=== PATIENT | male | born 1995 | race Caucasian/White ===

== ENCOUNTER 2018-05-31 13:43 | Inpatient (IN) | payer OTHER ==
[2018-05-31] MEDS ORDERED: HEMOQUE TEST 1 EACH EACH ONE ×4 (13:52→19:00)
[2018-05-31] MEDS ORDERED: SODIUM CHLORIDE 1,000 ML IV STA ×2 (13:56→14:14)
--- NOTE | 2018-05-31 13:56 | PDOC ---
History of Present Illness - General Stated Complaint: VOMITING Time Seen by Provider: 05/31/18 13:46 History Source: Patient Exam Limitations: No Limitations - History of Present Illness Initial Comments: 05/31/18 14:02 22-year-old male with past medical history of type one diabetes presents for nausea and vomiting. He states that he ran out of his insulin two days ago, because of insurance issues. He admits to nausea, vomiting, epigastric pain. He denies chest pain, shortness of breath, diarrhea, fever, chills, cough, palpitations, weakness, headache. He states he has never been in DKA, recently moved to the area for college. Past History - Past Medical History Allergies/Adverse Reactions: Allergies Allergy/AdvReac Type Severity Reaction Status Date / Time Penicillins Allergy Unknown Verified 05/31/18 13:59 Home Medications: Ambulatory Orders Insulin Lispro [Admelog] 1 unit SQ ASDIR 05/31/18 Review of Systems - Review of Systems Able to Perform ROS?: Yes Comments:: 05/31/18 14:02 General: denies fever, chills, night sweats, generalized weakness. HEENT: denies sore throat, rhinorrhea, ear pain. Heart: denies chest pain, palpitations, syncope, lower extremity swelling, diaphoresis. Respiratory: denies shortness of breath, cough, sputum production, hemoptysis. Abdomen: admits to abdominal pain, nausea, vomiting. denies diarrhea, constipation, blood in stool. : denies dysuria, increased urinary frequency, hematuria, urinary incontinence , flank pain. Back: denies back pain. Musculoskeletal: denies joint pain, muscle pain, joint swelling. Neurological: denies headache, dizziness, numbness, tingling, weakness. Skin: denies rash, laceration, abrasion. *Physical Exam - Physical Exam Comments: 05/31/18 14:03 Constitutional: Well-nourished, Well-developed, appearing stated age. actively vomiting. HEENT: head is normocephalic, atraumatic. EOMI. PERRLA. Neck: supple. Full ROM. Heart: regular rhythm. no murmurs, rubs or gallops. Lungs: clear to auscultation bilaterally. no crackles, rhonchi or wheezing. no stridor. Abdomen: soft, nontender. normal bowel sounds. no rebound, guarding, masses. Extremities: Peripheral pulses intact. No lower extremity edema. Neurological: CN 2-12 grossly intact. Moves all four extremities. Psych: awake, alert, oriented x3. Follows commands. Answers questions appropriately. ED Treatment Course - LABORATORY CBC & Chemistry Diagram: 06/01/18 08:00 06/01/18 08:00 Medical Decision Making - Medical Decision Making 05/31/18 14:04 22 year old male with PMH type 1 diabetes presented to ED for N/V, admits to no insulin use for 2 days. Initial Vital Signs Temp Pulse Resp BP Pulse Ox 97.9 F 133 H 20 119/71 100 05/31/18 13:45 05/31/18 13:45 05/31/18 13:45 05/31/18 13:45 05/31/18 13:45 Afebrile. Tachycardic. Borderline tachypnea. No hypotension. No hypoxia on room air. Concern for DKA - Pending labs. Concern for infection - Pending CXR, UA/UC, BC Pt actively vomiting - Zofran ordered Fluids ordered. EKG performed at 1409 - rate 129. regular rhythm. normal axis. normal intervals. no acute ST changes. 05/31/18 14:29 CBC WBC 19.7 K/mm3 (4.0-10.8) H 05/31/18 14:14 RBC 5.30 M/mm3 (4.00-5.60) 05/31/18 14:14 Hgb 15.9 GM/dl (11.7-16.9) 05/31/18 14:14 Hct 48.9 % (35.4-49) 05/31/18 14:14 MCV 92.3 fl (80-96) 05/31/18 14:14 MCH 29.9 pg (25.7-33.7) 05/31/18 14:14 MCHC 32.4 g/dl (32.0-35.9) 05/31/18 14:14 RDW 12.0 % (11.9-15.9) 05/31/18 14:14 Plt Count 364 K/MM3 (134-434) 05/31/18 14:14 MPV 9.6 fl (7.5-11.1) 05/31/18 14:14 Absolute Neuts (auto) 17.8 K/mm3 05/31/18 14:14 Neutrophils % No Result Required. 05/31/18 14:14 Lymphocytes % No Result Required. 05/31/18 14:14 Leukocytosis. - Possibly secondary to DKA. Acetone 2+ - Secondary to DKA. Pt reassessed, reports vomiting resolved with Zofran. 05/31/18 14:38 CMP Sodium 128 mmol/L (136-145) L 05/31/18 14:14 Potassium 5.7 mmol/L (3.5-5.1) H 05/31/18 14:14 Chloride 98 mmol/L (98-107) 05/31/18 14:14 Carbon Dioxide 11 mmol/L (22-28) L 05/31/18 14:14 Anion Gap 19 MMOL/L (8-16) H 05/31/18 14:14 BUN 28 mg/dl (7-18) H 05/31/18 14:14 Creatinine 1.4 mg/dl (0.6-1.3) H 05/31/18 14:14 Creat Clearance w eGFR > 60 (>60) 05/31/18 14:14 Random Glucose 505 mg/dl (74-106) H* 05/31/18 14:14 Calcium 9.2 mg/dl (8.4-10.2) 05/31/18 14:14 Phosphorus 7.0 mg/dl (2.5-4.6) H 05/31/18 14:14 Magnesium 2.0 mg/dL (1.8-2.4) 05/31/18 14:14 Total Bilirubin 2.0 mg/dl (0.2-1.0) H 05/31/18 14:14 AST 22 U/L (10-42) 05/31/18 14:14 ALT 22 U/L (10-40) 05/31/18 14:14 Alkaline Phosphatase 121 U/L (32-92) H 05/31/18 14:14 Total Protein 8.4 g/dl (6.4-8.3) H 05/31/18 14:14 Albumin 4.9 g/dl (3.5-5.0) 05/31/18 14:14 Corrected sodium = 134 Hyperkalemia - In the setting of DKA, pt is likely eukalemic - Insulin ordered - Since K>5.3, no potassium indicated at this time Hyperglycemia 505 - Secondary to DKA No hypophosphatemia Elevated ALP - Unclear etiology CXR - no infiltrate, sharp costophrenic angles, no cardiomegaly. 05/31/18 15:00 Insulin drip started. - Will repeat BMP every 2 hours - Will repeat VBG every 4 hours Pt reassessed, states he is feeling better, reports no nausea/vomiting. 05/31/18 16:12 VBG results: - pH 7.07 - pCO2 32 - pO2 63.5 - HCO3 10 Metabolic acidosis. Pt will be admitted to ICU. Hospitalists carleen. 05/31/18 16:[address] Torres, who accepts the patient for admission to the ICU. Pt will be transferred. 05/31/18 16:21 Lab called, Lactate = 4. - Will continue IV fluids 05/31/18 16:32 Urine Test Results Urine Color Yellow 05/31/18 15:54 Urine Appearance Clear 05/31/18 15:54 Urine pH 5.0 (4.5-8) 05/31/18 15:54 Ur Specific [place] 1.020 (1.010-1.035) 05/31/18 15:54 Urine Protein 1+ (NEGATIVE) H 05/31/18 15:54 Urine Glucose (UA) 2+ (NEGATIVE) H 05/31/18 15:54 Urine Ketones 4+ (NEGATIVE) H 05/31/18 15:54 Urine Blood Trace-lysed (NEGATIVE) H 05/31/18 15:54 Urine Nitrite Negative (NEGATIVE) 05/31/18 15:54 Urine Bilirubin Negative (NEGATIVE) 05/31/18 15:54 Ur Leukocyte Esterase Negative (NEGATIVE) 05/31/18 15:54 Urine ketones and glucose, consistent with DKA. Dr. Fox paged, staff stated he is in a procedure, and to call back in 20 minutes. 05/31/18 17:04 Dr. Dixon spoke with Dr. Fox, who accepts the patient to be admitted to the ICU. 05/31/18 17:30 CMP Sodium 134 mmol/L (136-145) L 05/31/18 17:18 Potassium 5.1 mmol/L (3.5-5.1) 05/31/18 17:18 Chloride 106 mmol/L (98-107) 05/31/18 17:18 Carbon Dioxide 8 mmol/L (22-28) L D 05/31/18 17:18 Anion Gap 20 MMOL/L (8-16) H 05/31/18 17:18 BUN 24 mg/dl (7-18) H 05/31/18 17:18 Creatinine 1.2 mg/dl (0.6-1.3) 05/31/18 17:18 Creat Clearance w eGFR > 60 (>60) 05/31/18 17:18 Random Glucose 319 mg/dl (74-106) H* D 05/31/18 17:18 Lactic Acid 1.8 mmol/L (0.4-2.0) 05/31/18 17:00 Calcium 8.7 mg/dl (8.4-10.2) 05/31/18 17:18 Phosphorus 7.0 mg/dl (2.5-4.6) H 05/31/18 14:14 Magnesium 2.0 mg/dL (1.8-2.4) 05/31/18 14:14 Total Bilirubin 2.0 mg/dl (0.2-1.0) H 05/31/18 14:14 AST 22 U/L (10-42) 05/31/18 14:14 ALT 22 U/L (10-40) 05/31/18 14:14 Alkaline Phosphatase 121 U/L (32-92) H 05/31/18 14:14 Total Protein 8.4 g/dl (6.4-8.3) H 05/31/18 14:14 Albumin 4.9 g/dl (3.5-5.0) 05/31/18 14:14 Lipase 48 U/L (73-393) L 05/31/18 14:14 Potassium 5.1 - 20 mEq Kcl ordered Anion Gap 20 Glucose 319 - Will continue insulin drip - Will closely monitor glucose Repeat Lactate 1.8 - Will continue fluid resuscitation 05/31/18 19:05 I discussed the case with Dr. Martínez, who will assume care for the patient while he is in the Emergency Department. Pending ICU admission. *DC/Admit/Observation/Transfer Diagnosis at time of Disposition: Diabetic keto-acidosis - Discharge Dispostion Condition at time of disposition: Stable Decision to Admit order: Yes - Referrals - Patient Instructions - Post Discharge Activity
[2018-05-31] MEDS ORDERED: ONDANSETRON 4 MG/2 ML VIAL IVPUSH ONE (13:59)
--- NOTE | 2018-05-31 14:06 | PDOC ---
Attending Attestation - Resident Resident Name: Raghu Vieiraa - ED Attending Attestation I have performed the following: I have examined & evaluated the patient, The case was reviewed & discussed with the resident, I agree w/resident's findings & plan, Exceptions are as noted - HPI HPI: 05/31/18 14:00 22-year-old male with a history of type 1 diabetes on an insulin pump presents to the emergency Department with multiple episodes of nonbloody nonbilious emesis over the last 24 hours after running out of his insulin. The patient is new to the area as he attends college nearby and states that [facility] would not fill his insulin prescription. He last got insulin via insulin pump 2 days ago. He's never been in DKA before. He reports chills but no fevers and epigastric pain. Otherwise denies headache, focal weakness or numbness, chest pain, shortness of breath, dysuria, coughing, sore throat, ear pain, stiff neck , rashes. He reports his diabetes is typically well controlled. On arrival to the emergency department, fingerstick is critically high. - Physicial Exam PE: 05/31/18 14:03 GENERAL: Awake, alert, and fully oriented, vomiting into basin ENT: Dry MM NECK: supple LUNGS: Breath sounds equal, clear to auscultation bilaterally. No wheezes, and no crackles HEART: HR 130 but regular, normal S1 and S2, no murmurs, rubs or gallops ABDOMEN: Soft, nontender, normoactive bowel sounds. No guarding, no rebound. No masses EXTREMITIES: Normal range of motion, no edema. No clubbing or cyanosis. No cords, erythema, or tenderness NEUROLOGICAL: Normal speech, cranial nerves intact, 5/5 strength in all 4 extremities, normal sensation to light touch in all 4 extremities, normal gait SKIN: Warm, Dry, normal turgor, no rashes or lesions noted. - Critical Care Time Total Critical Care Time: 90 Critical Care Statement: The care of this patient involved high complexity decision making to prevent further life threatening deterioration of the patient 's condition and/or to evaluate & treat vital organ system(s) failure or risk of failure. - Medical Decision Making 05/31/18 14:04 22yo M hx DM1 presents to the ED with likely DKA after running out of insulin 2 days ago. Pt tachycardic on arrival, likely due to hypovolemia. +dry MM. Will begin fluid resusitation, send labs including VBG, lytes, acetone levels and infectious w/u. Admit to ICU vs floor pending severity of DKA. 05/31/18 14:30 WBC 19.6, likely reactionary. CXR clear on my read No evidence of infection at this time clinically, will hold off on abx for now 05/31/18 17:01 Lactate 4, pt now status post NS L1 and L2 Ordered for lactated ringers for L3, also ordered for NS with 20meq KCl @125/hr Insulin gtt started at 3:15p Rpt BMP, FS, lactate being drawn now pH 7.01, bicarb 10, consistent with severe DKA Case discussed with Dr. Torres and Dr. Fox, pt accepted for admission to ICU Will transfer to [place] 05/31/18 18:33 Rpt lactic normal Rpt BMP with unchanged gap FS down to 282 D5NS + 20meq KCl ordered @125ml/hr No bed available in ICU yet 05/31/18 19:00 Remains tachycardic but down to 124 S/p 2 liters of NS bolus and 1 liter of LR Got about 100cc of NS+KCl, fluids being switched to D5NS + KCl Other vitals wnl Rpt BMP, VBG, FS, pending Case signed out to ON attending while he awaits bed/transfer Heart Score/ECG Review #1 05/31/18 14:15 Twelve-lead EKG was performed and reviewed by me. Sinus tachycardia, rate 129. Normal axis. Peak T waves. No ST elevations.
[2018-05-31] MEDS ORDERED: ONDANSETRON 4 MG/2 ML VIAL ONE (14:07)
[2018-05-31 14:20] LABS: HEMATOCRIT 48.9 % (35.4-49); HEMOGLOBIN 15.9 GM/dl (11.7-16.9); MCH 29.9 pg (25.7-33.7); MCHC 32.4 g/dl (32.0-35.9); MEAN CELL VOLUME 92.3 fl (80-96); MEAN PLT VOLUME 9.6 fl (7.5-11.1); PLATELET COUNT 364 K/MM3 (134-434); WHITE BLOOD COUNT 19.7 K/mm3 (4.0-10.8)
[2018-05-31 14:28] LABS: ALBUMIN 4.9 g/dl (3.5-5.0); ALK PHOS 121 U/L (32-92); ANION GAP 19 MMOL/L (8-16); BLOOD UREA NITROGEN 28 mg/dl (7-18); CALCIUM 9.2 mg/dl (8.4-10.2); CHLORIDE 98 mmol/L (98-107); CO2 11 mmol/L (22-28); CREATININE 1.4 mg/dl (0.6-1.3); POTASSIUM 5.7 mmol/L (3.5-5.1); SGOT/AST 22 U/L (10-42); SGPT/ALT 22 U/L (10-40); SODIUM 128 mmol/L (136-145); TOT PROT 8.4 g/dl (6.4-8.3)
[2018-05-31 14:34] LABS: ACTIVATED PTT 28.7 SECONDS (25.2-36.5)
[2018-05-31 14:38] LABS: GLUCOSE,RANDOM 505 mg/dl (74-106); INR 1.04 (0.82-1.09); PROTHROMBIN TIME (PATIENT) 11.6 SEC (10.2-13.0)
[2018-05-31] MEDS ORDERED: INSULIN REGULAR 100 UNITS in SODIUM CHLORIDE 99 ML IVPB SCH (14:45)
[2018-05-31 14:52] LABS: PLATELET ESTIMATE ADEQUATE
[2018-05-31 16:03] LABS: VENOUS PC02 36.2 mmHg (38-52); VENOUS PO2 63.5 mmHg (28-48)
[2018-05-31 16:04] LABS: VENOUS PH 7.07 (7.32-7.42)
[2018-05-31 16:27] LABS: URINE APPEARANCE Clear; URINE BILIRUBIN Negative (NEGATIVE); URINE COLOR Yellow; URINE GLUCOSE (UA) 2+ (NEGATIVE); URINE KETONE 4+ (NEGATIVE); URINE LEUK ESTERASE Negative (NEGATIVE); URINE NITRITE Negative (NEGATIVE); URINE PROTEIN 1+ (NEGATIVE); URINE UROBILINOGEN 0.2 (0.2-1.0)
[2018-05-31 16:39] LABS: LIPASE 48 U/L (73-393)
[2018-05-31] MEDS ORDERED: LACTATED RINGERS SOLUTION 1000 ML INFUS.BAG IV ONE (16:59)
[2018-05-31] MEDS ORDERED: SODIUM CHLORIDE 0.9%/KCL 20 MEQ/1,000 ML INFUS.BAG IV SCH (17:00)
[2018-05-31 17:59] LABS: ANION GAP 20 MMOL/L (8-16); BLOOD UREA NITROGEN 24 mg/dl (7-18); CALCIUM 8.7 mg/dl (8.4-10.2); CHLORIDE 106 mmol/L (98-107); CO2 8 mmol/L (22-28); CREATININE 1.2 mg/dl (0.6-1.3); POTASSIUM 5.1 mmol/L (3.5-5.1); SODIUM 134 mmol/L (136-145)
[2018-05-31 18:01] LABS: GLUCOSE,RANDOM 319 mg/dl (74-106)
[2018-05-31 18:34] LABS: URINE BACTERIA 1+ /hpf (NEGATIVE); URINE RBC 0-2 /hpf (0-3); URINE WBC 0-1 (0-2)
[2018-05-31] MEDS ORDERED: D5-NS + 20 MEQ KCL - 20 MEQ/1,000 ML INFUS.BAG IV SCH (18:45)
[2018-05-31 19:39] LABS: ANION GAP 17 MMOL/L (8-16); BLOOD UREA NITROGEN 20 mg/dl (7-18); CALCIUM 8.5 mg/dl (8.4-10.2); CHLORIDE 109 mmol/L (98-107); CO2 10 mmol/L (22-28); CREATININE 1.2 mg/dl (0.6-1.3); GLUCOSE,RANDOM 217 mg/dl (74-106); SODIUM 136 mmol/L (136-145)
[2018-05-31 19:43] LABS: PHOSPHOROUS 3.8 mg/dl (2.5-4.6)
[2018-05-31 20:28] LABS: VENOUS PC02 28.3 mmHg (38-52); VENOUS PO2 54.7 mmHg (28-48)
[2018-05-31 20:30] LABS: VENOUS PH 7.2 (7.32-7.42)
[2018-05-31] MEDS ORDERED: BENZOCAINE/MENTH/CETYLPYRD CL 1 EACH LOZENGE MM PRN (20:54)
[2018-05-31 21:46] LABS: ANION GAP 13 MMOL/L (8-16); BLOOD UREA NITROGEN 18 mg/dl (7-18); CALCIUM 8.5 mg/dl (8.4-10.2); CHLORIDE 110 mmol/L (98-107); CO2 13 mmol/L (22-28); GLUCOSE,RANDOM 178 mg/dl (74-106); POTASSIUM 4.7 mmol/L (3.5-5.1); SODIUM 136 mmol/L (136-145)
[2018-05-31 22:32] VITALS: BMI 29.4
[2018-05-31] MEDS ORDERED: INSULIN (LEVEMIR) 100 UNITS/ML UNITS SQ ONE (22:45)
--- NOTE | 2018-05-31 23:58 | HP ---
CHIEF COMPLAINT: nausea / vomiting PCP: HISTORY OF PRESENT ILLNESS: This is a 22 year old male with a past medical history of IDDM x 6 years who presented to the ED with nausea and vomiting. Pt ran out of his insulin yesterday morning and has not had any since. Pt was unable to obtain due to an insurance issue. He is feeling much better at time of exam. ER course was notable for: (1) Glucose 505, Anion gap 19, Ketone 2+ (2) (3) Recent Travel: pt denies PAST MEDICAL HISTORY: DM PAST SURGICAL HISTORY: none Social History: Smoking: vapes Alcohol: "social" Drugs: pt denies Family History: mother open heart as a teen father alive, unknown if any medical problems 2 half brothers, one half sister all alive and well Allergies Penicillins Allergy (Unknown, Verified 05/31/18 13:59) HOME MEDICATIONS: 3 Medication Instructions Recorded Insulin Lispro [Admelog] via pump 1 unit/hr basal rate 05/31/18 REVIEW OF SYSTEMS CONSTITUTIONAL: Absent: fever, chills, diaphoresis, generalized weakness, malaise, loss of appetite, weight change HEENT: Absent: rhinorrhea, nasal congestion, throat pain, throat swelling, difficulty swallowing, mouth swelling, ear pain, eye pain, visual changes CARDIOVASCULAR: Absent: chest pain, syncope, palpitations, irregular heart rate, lightheadedness , peripheral edema RESPIRATORY: Absent: cough, shortness of breath, dyspnea with exertion, orthopnea, wheezing, stridor, hemoptysis GASTROINTESTINAL: Present: nausea, vomiting Absent: abdominal pain, abdominal distension, diarrhea, constipation, melena, hematochezia GENITOURINARY: Absent: dysuria, frequency, urgency, hesitancy, hematuria, flank pain, genital pain MUSCULOSKELETAL: Absent: myalgia, arthralgia, joint swelling, back pain, neck pain SKIN: Absent: rash, itching, pallor HEMATOLOGIC/IMMUNOLOGIC: Absent: easy bleeding, easy bruising, lymphadenopathy, frequent infections ENDOCRINE: Absent: unexplained weight gain, unexplained weight loss, heat intolerance, cold intolerance NEUROLOGIC: Absent: headache, focal weakness or paresthesias, dizziness, unsteady gait, seizure, mental status changes, bladder or bowel incontinence PSYCHIATRIC: Absent: anxiety, depression, suicidal or homicidal ideation, hallucinations. PHYSICAL EXAMINATION Vital Signs - 24 hr 3 05/31/18 05/31/18 05/31/18 13:45 15:03 17:30 Temperature 97.9 F 98.3 F Pulse Rate 133 H 124 H Pulse Rate [ 126 H 124 H Apical] Respiratory 20 26 H 26 H Rate Blood Pressure 119/71 120/72 Blood Pressure 128/59 L 120/72 [Arm] O2 Sat by Pulse 100 100 100 Oximetry (%) 3 05/31/18 05/31/18 05/31/18 18:35 19:29 21:27 Temperature Pulse Rate Pulse Rate [ 122 H 129 H 118 H Apical] Respiratory 27 H 24 H Rate Blood Pressure Blood Pressure 121/73 122/81 120/80 [Arm] O2 Sat by Pulse 100 100 100 Oximetry (%) 3 05/31/18 22:04 Temperature 97.9 F Pulse Rate 111 H Pulse Rate [ Apical] Respiratory 18 Rate Blood Pressure 125/63 Blood Pressure [Arm] O2 Sat by Pulse 100 Oximetry (%) GENERAL: Awake, alert, and fully oriented, in no acute distress. HEAD: Normal with no signs of trauma. EYES: Pupils equal, round and reactive to light, extraocular movements intact, sclera anicteric, conjunctiva clear. No lid lag. EARS, NOSE, THROAT: Ears normal, nares patent, oropharynx clear without exudates. Moist mucous membranes. NECK: Normal range of motion, supple without lymphadenopathy, JVD, or masses. LUNGS: Breath sounds equal, clear to auscultation bilaterally. No wheezes, and no crackles. No accessory muscle use. HEART: Regular rate and rhythm, normal S1 and S2 without murmur, rub or gallop. ABDOMEN: Soft, nontender, not distended, normoactive bowel sounds, no guarding, no rebound, no masses. No hepatomegaly or splenomegaly. MUSCULOSKELETAL: Normal range of motion at all joints. No bony deformities or tenderness. No CVA tenderness. UPPER EXTREMITIES: 2+ pulses, warm, well-perfused. No cyanosis. No clubbing. No peripheral edema. LOWER EXTREMITIES: 2+ pulses, warm, well-perfused. No calf tenderness. No peripheral edema. NEUROLOGICAL: Cranial nerves II-XII intact. Normal speech. Normal gait. PSYCHIATRIC: Cooperative. Good eye contact. Appropriate mood and affect. SKIN: Warm, dry, normal turgor, no rashes or lesions noted, normal capillary refill. Laboratory Results - last 24 hr 3 05/31/18 05/31/18 05/31/18 14:14 14:14 14:14 WBC 19.7 H RBC 5.30 Hgb 15.9 Hct 48.9 MCV 92.3 MCH 29.9 MCHC 32.4 RDW 12.0 Plt Count 364 MPV 9.6 Absolute Neuts (auto) 17.8 Neutrophils % No Result Required. Neutrophils % (Manual) 92.0 H* Band Neutrophils % 3.0 Lymphocytes % No Result Required. Lymphocytes % (Manual) 3.0 L Monocytes % (Manual) 2 L Platelet Estimate Adequate PT with INR 11.6 INR 1.04 PTT (Actin FS) 28.7 VBG pH 7.07 L* POC VBG pCO2 36.2 L POC VBG pO2 63.5 H Mixed VBG HCO3 10.0 L* Sodium Potassium Chloride Carbon Dioxide Anion Gap BUN Creatinine Creat Clearance w eGFR POC Glucometer Random Glucose Lactic Acid Calcium Phosphorus Magnesium Total Bilirubin AST ALT Alkaline Phosphatase Total Protein Albumin Lipase Urine Color Urine Appearance Urine pH Ur Specific [place] Urine Protein Urine Glucose (UA) Urine Ketones Urine Blood Urine Nitrite Urine Bilirubin Urine Urobilinogen Ur Leukocyte Esterase Urine RBC Urine WBC Urine Bacteria Acetone, Qual 3 05/31/18 05/31/18 05/31/18 05/31/18 14:14 14:14 14:14 17:00 WBC RBC Hgb Hct MCV MCH MCHC RDW Plt Count MPV Absolute Neuts (auto) Neutrophils % Neutrophils % (Manual) Band Neutrophils % Lymphocytes % Lymphocytes % (Manual) Monocytes % (Manual) Platelet Estimate PT with INR INR PTT (Actin FS) VBG pH POC VBG pCO2 POC VBG pO2 Mixed VBG HCO3 Sodium 128 L Potassium 5.7 H Chloride 98 Carbon Dioxide 11 L Anion Gap 19 H BUN 28 H Creatinine 1.4 H Creat Clearance w eGFR > 60 POC Glucometer Random Glucose 505 H* Lactic Acid 4.0 H* 1.8 Calcium 9.2 Phosphorus Magnesium 2.0 Total Bilirubin 2.0 H AST 22 ALT 22 Alkaline Phosphatase 121 H Total Protein 8.4 H Albumin 4.9 Lipase 48 L Urine Color Urine Appearance Urine pH Ur Specific [place] Urine Protein Urine Glucose (UA) Urine Ketones Urine Blood Urine Nitrite Urine Bilirubin Urine Urobilinogen Ur Leukocyte Esterase Urine RBC Urine WBC Urine Bacteria Acetone, Qual Positive moderate 2+ 3 05/31/18 05/31/18 05/31/18 17:18 19:10 19:10 WBC RBC Hgb Hct MCV MCH MCHC RDW Plt Count MPV Absolute Neuts (auto) Neutrophils % Neutrophils % (Manual) Band Neutrophils % Lymphocytes % Lymphocytes % (Manual) Monocytes % (Manual) Platelet Estimate PT with INR INR PTT (Actin FS) VBG pH 7.20 L* POC VBG pCO2 28.3 L D POC VBG pO2 54.7 H Mixed VBG HCO3 10.5 L* Sodium 134 L 136 Potassium 5.1 5.0 Chloride 106 109 H Carbon Dioxide 8 L D 10 L D Anion Gap 20 H 17 H BUN 24 H 20 H Creatinine 1.2 1.2 Creat Clearance w eGFR > 60 > 60 POC Glucometer Random Glucose 319 H* D 217 H D Lactic Acid Calcium 8.7 8.5 Phosphorus 3.8 D Magnesium Total Bilirubin AST ALT Alkaline Phosphatase Total Protein Albumin Lipase Urine Color Urine Appearance Urine pH Ur Specific [place] Urine Protein Urine Glucose (UA) Urine Ketones Urine Blood Urine Nitrite Urine Bilirubin Urine Urobilinogen Ur Leukocyte Esterase Urine RBC Urine WBC Urine Bacteria Acetone, Qual 3 05/31/18 05/31/18 05/31/18 05/31/18 20:14 21:20 21:36 23:26 WBC RBC Hgb Hct MCV MCH MCHC RDW Plt Count MPV Absolute Neuts (auto) Neutrophils % Neutrophils % (Manual) Band Neutrophils % Lymphocytes % Lymphocytes % (Manual) Monocytes % (Manual) Platelet Estimate PT with INR INR PTT (Actin FS) VBG pH POC VBG pCO2 POC VBG pO2 Mixed VBG HCO3 Sodium 136 Potassium 4.7 Chloride 110 H Carbon Dioxide 13 L D Anion Gap 13 BUN 18 Creatinine 1.0 Creat Clearance w eGFR > 60 POC Glucometer 183 190 166 Random Glucose 178 H Lactic Acid Calcium 8.5 Phosphorus Magnesium Total Bilirubin AST ALT Alkaline Phosphatase Total Protein Albumin Lipase Urine Color Urine Appearance Urine pH Ur Specific [place] Urine Protein Urine Glucose (UA) Urine Ketones Urine Blood Urine Nitrite Urine Bilirubin Urine Urobilinogen Ur Leukocyte Esterase Urine RBC Urine WBC Urine Bacteria Acetone, Qual 3 Urine Color Yellow 05/31/18 15:54 Urine Appearance Clear 05/31/18 15:54 Urine pH 5.0 (4.5-8) 05/31/18 15:54 Ur Specific [place] 1.020 (1.010-1.035) 05/31/18 15:54 Urine Protein 1+ (NEGATIVE) H 05/31/18 15:54 Urine Glucose (UA) 2+ (NEGATIVE) H 05/31/18 15:54 Urine Ketones 4+ (NEGATIVE) H 05/31/18 15:54 Urine Blood Trace-lysed (NEGATIVE) H 05/31/18 15:54 Urine Nitrite Negative (NEGATIVE) 05/31/18 15:54 Urine Bilirubin Negative (NEGATIVE) 05/31/18 15:54 Ur Leukocyte Esterase Negative (NEGATIVE) 05/31/18 15:54 Urine RBC 0-2 /hpf (0-3) 05/31/18 15:54 Urine WBC 0-1 (0-2) 05/31/18 15:54 Urine Bacteria 1+ /hpf (NEGATIVE) 05/31/18 15:54 ECG Sinus tachycardia vent rate 129, QTC 462 rightward axis Radiology Reports CXR portable Impression: No acute pathology. No comparison studies. Reported By: Stefan Lam MD 05/31/18 1941 ASSESSMENT/PLAN: 22yM with PMH IDDM presented to the ED with nausea and vomiting. DKA - ICU bed was delayed due to bed availability. Anion gap closed prior to bed availability, decision was made to admit pt to med/surg - start levemir 12u BID, d/c insulin drip in one hour, repeat BGM then and in 2 hours - tolerating minimal po intake due to sore throat. Ate half of a pudding. monitor BGM closely - cont IVF; dc D5 if glucose creeping back up once off insulin drip. DVT PPX - pt fully ambulatory, defer heparin FEN - D51/2NS +20KCl @ 125cc/hr for now - K initially elevated, now normalized; pseudohyponatremia, normal when corrected for glucose - diabetic diet as tolerated Dispo: Pt currently requires further inpatient management of his emergent condition. Visit type - Emergency Visit Emergency Visit: Yes ED Registration Date: 05/31/18 Care time: The patient presented to the Emergency Department on the above date and was hospitalized for further evaluation of their emergent condition. - New Patient This patient is new to me today: Yes Date on this admission: 05/31/18 - Critical Care Critical Care patient: No
[2018-06-01] MEDS ORDERED: SODIUM CHLORIDE 1,000 ML IV SCH (02:30)
[2018-06-01] MEDS ORDERED: INSULIN (LEVEMIR) 100 UNITS/ML UNITS SQ SCH (07:00)
--- NOTE | 2018-06-01 07:22 | PN ---
Physical Exam: SUBJECTIVE: Patient seen and examined, reports feeling less nauseous, reports feeling hungry. OBJECTIVE: patient is a 22-year-old male with a past medical history of IDDM ( insulin pump) patient was admitted from the emergency department to medical surgical floor for DKA. Vital Signs Period Temp Pulse Resp BP Sys/[place] Pulse Ox Last 24 Hr 97.7 F-98.3 F 86-133 18-27 119-128/59-81 100-100 GENERAL: The patient is awake, alert, and fully oriented, in no acute distress. HEAD: Normal with no signs of trauma. EYES: PERRL, extraocular movements intact, sclera anicteric, conjunctiva clear. No ptosis. ENT: Ears normal, nares patent, oropharynx clear without exudates, moist mucous membranes. NECK: Trachea midline, full range of motion, supple. LUNGS: Breath sounds equal, clear to auscultation bilaterally, no wheezes, no crackles, no accessory muscle use. HEART: Regular rate and rhythm, S1, S2 without murmur, rub or gallop. ABDOMEN: Soft, nontender, nondistended, normoactive bowel sounds, no guarding, no rebound, no hepatosplenomegaly, no masses. EXTREMITIES: 2+ pulses, warm, well-perfused, no edema. NEUROLOGICAL: Cranial nerves II through XII grossly intact. Normal speech, gait not observed. PSYCH: Normal mood, normal affect. SKIN: tattoos to right arm, Warm, dry, normal turgor, no rashes or lesions noted Laboratory Results - last 24 hr CBC WBC 13.3 K/mm3 (4.0-10.8) H 06/01/18 08:00 RBC 4.77 M/mm3 (4.00-5.60) 06/01/18 08:00 Hgb 14.1 GM/dl (11.7-16.9) 06/01/18 08:00 Hct 43.1 % (35.4-49) 06/01/18 08:00 MCV 90.4 fl (80-96) 06/01/18 08:00 MCH 29.5 pg (25.7-33.7) 06/01/18 08:00 MCHC 32.6 g/dl (32.0-35.9) 06/01/18 08:00 RDW 12.1 % (11.9-15.9) 06/01/18 08:00 Plt Count 280 K/MM3 (134-434) D 06/01/18 08:00 MPV 8.4 fl (7.5-11.1) D 06/01/18 08:00 Absolute Neuts (auto) 10.6 K/mm3 06/01/18 08:00 Neutrophils % 79.6 % (42.8-82.8) 06/01/18 08:00 Neutrophils % (Manual) 92.0 % (42.8-82.8) H* 05/31/18 14:14 Band Neutrophils % 3.0 % (0-10) 05/31/18 14:14 Lymphocytes % 12.5 % (8-40) 06/01/18 08:00 Lymphocytes % (Manual) 3.0 % (8-40) L 05/31/18 14:14 Monocytes % 6.7 % (3.8-10.2) 06/01/18 08:00 Monocytes % (Manual) 2 % (3.8-10.2) L 05/31/18 14:14 Eosinophils % 0.2 % (0-4.5) 06/01/18 08:00 Basophils % 1.0 % (0-2.0) 06/01/18 08:00 Platelet Estimate Adequate 05/31/18 14:14 CMP Sodium 132 mmol/L (136-145) L 06/01/18 08:00 Potassium 4.4 mmol/L (3.5-5.1) 06/01/18 08:00 Chloride 105 mmol/L (98-107) 06/01/18 08:00 Carbon Dioxide 13 mmol/L (22-28) L 06/01/18 08:00 Anion Gap 14 MMOL/L (8-16) 06/01/18 08:00 BUN 14 mg/dl (7-18) 06/01/18 08:00 Creatinine 0.9 mg/dl (0.6-1.3) 06/01/18 08:00 Creat Clearance w eGFR > 60 (>60) 06/01/18 08:00 POC Glucometer 268 UNITS (80-120) 06/01/18 06:31 Random Glucose 292 mg/dl (74-106) H D 06/01/18 08:00 Lactic Acid 1.8 mmol/L (0.4-2.0) 05/31/18 17:00 Calcium 8.5 mg/dl (8.4-10.2) 06/01/18 08:00 Phosphorus 2.3 mg/dl (2.5-4.6) L D 06/01/18 08:00 Magnesium 1.8 mg/dL (1.8-2.4) 06/01/18 08:00 Total Bilirubin 2.0 mg/dl (0.2-1.0) H 05/31/18 14:14 AST 22 U/L (10-42) 05/31/18 14:14 ALT 22 U/L (10-40) 05/31/18 14:14 Alkaline Phosphatase 121 U/L (32-92) H 05/31/18 14:14 Total Protein 8.4 g/dl (6.4-8.3) H 05/31/18 14:14 Albumin 4.9 g/dl (3.5-5.0) 05/31/18 14:14 Lipase 48 U/L (73-393) L 05/31/18 14:14 Active Medications Generic Name Dose Route Start Last Admin Trade Name Freq PRN Reason Stop Dose Admin Benzocaine/Menthol 1 each 05/31/18 20:54 05/31/18 21:25 Cepacol Lozenge - MM 1 each PRN PRN Administration SORE THROAT Sodium Chloride 1,000 mls @ 100 mls/hr 06/01/18 02:30 06/01/18 02:50 Normal Saline - IV 100 mls/hr ASDIR SKYLA Administration Insulin Detemir 12 units 06/01/18 07:00 06/01/18 06:51 Levemir Vial SQ 12 units BID@0700,2200 SKYLA Administration ECG Sinus tachycardia vent rate 129, QTC 462 rightward axis Radiology Reports CXR portable Impression: No acute pathology. No comparison studies. 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 DVT PPX - pt fully ambulatory, defer heparin FEN - ns @100ml/hr patient is trialing diabetic diet - replete electrolyltes prn Dispo: Pt currently requires further inpatient management of his emergent condition.
[2018-06-01 08:25] LABS: EOS % 0.2 % (0-4.5); HEMATOCRIT 43.1 % (35.4-49); HEMOGLOBIN 14.1 GM/dl (11.7-16.9); LYMPH % 12.5 % (8-40); MCH 29.5 pg (25.7-33.7); MCHC 32.6 g/dl (32.0-35.9); MEAN CELL VOLUME 90.4 fl (80-96); MEAN PLT VOLUME 8.4 fl (7.5-11.1); MONO % 6.7 % (3.8-10.2); NEUT % 79.6 % (42.8-82.8); PLATELET COUNT 280 K/MM3 (134-434); RBC 4.77 M/mm3 (4.00-5.60); RDW 12.1 % (11.9-15.9); WHITE BLOOD COUNT 13.3 K/mm3 (4.0-10.8)
[2018-06-01 08:51] LABS: ANION GAP 14 MMOL/L (8-16); BLOOD UREA NITROGEN 14 mg/dl (7-18); CALCIUM 8.5 mg/dl (8.4-10.2); CHLORIDE 105 mmol/L (98-107); CO2 13 mmol/L (22-28); CREATININE 0.9 mg/dl (0.6-1.3); GLUCOSE,RANDOM 292 mg/dl (74-106); MAGNESIUM 1.8 mg/dL (1.8-2.4); PHOSPHOROUS 2.3 mg/dl (2.5-4.6); POTASSIUM 4.4 mmol/L (3.5-5.1); SODIUM 132 mmol/L (136-145)
[2018-06-01] MEDS ORDERED: ONDANSETRON 4 MG/2 ML VIAL IVPUSH PRN (09:33)
[2018-06-01] MEDS ORDERED: MAGNESIUM 1GM/D5W 100ML - 100 ML IVPB IVPB ONE (10:00)
[2018-06-01] MEDS ORDERED: NAPH,MB-DB/K PH,MBDB POWDER PACKET PO SCH (10:00)
[2018-06-01] MEDS: INSULIN SLIDING SCALE (NOVOLOG) 1 VIAL SQ SCH ×2 (10:24→17:00)
[2018-06-01] MEDS ORDERED: INSULIN (NOVOLOG) ASPART 100 UNITS/ML 10ML VIAL ONE (10:28)
[2018-06-01 11:36] VITALS: PULSE 106
[2018-06-01 14:03] LABS: VENOUS PC02 21.2 mmHg (38-52); VENOUS PH 7.3 (7.32-7.42)
[2018-06-01 14:19] VITALS: BP 119/61; TEMP 98.1
--- NOTE | 2018-06-02 12:12 | EKG ---
Test Reason : Blood Pressure : / mmHG Vent. Rate : 129 BPM Atrial Rate : 129 BPM P-R Int : 142 ms QRS Dur : 082 ms QT Int : 316 ms P-R-T Axes : 074 092 054 degrees QTc Int : 462 ms SINUS TACHYCARDIA RIGHTWARD AXIS BORDERLINE ECG NO PREVIOUS ECGS AVAILABLE Confirmed by THIAGO CRISOSTOMO, HAIDER ([id number]) on 06/02/2018 12:12:16 PM Referred By: JOHN WOODRUFF Confirmed By:HAIDER DAS MD
== END 2018-06-01 17:10 | disposition home or self-care (01) | DRG 420 ==
LOC: FER 13:43 → FM/S 21:57
PROVIDERS: ADMIT Internal Medicine; ATTEND Nurse Practitioner Family
DX: E10.10 Type 1 diabetes mellitus with ketoacidosis without coma (principal); Z79.4 Long term (current) use of insulin; R00.1 Bradycardia, unspecified; E87.2 Acidosis; R06.82 Tachypnea, not elsewhere classified; E87.1 Hypo-osmolality and hyponatremia; E87.5 Hyperkalemia; D72.829 Elevated white blood cell count, unspecified
CPT/HCPCS: 36415; 71045-TC-FY; 80048; 80053; 81003; 81015; 82009; 82803; 82962; 83605; 83690; 83735; 84100; 84439; 84443; 85025; 85610; 85730; 87040; 87086; 93005; 99284-25; J7030